=== PATIENT | female | born 1995 | race Caucasian/White ===

== ENCOUNTER 2019-04-09 17:58 | Emergency (ER) | payer BC, SELFPAY ==
[2019-04-09 18:10] VITALS: BP 121/77; PULSE 85; RESP 16; TEMP 36.4; O2SAT 99
--- NOTE | 2019-04-09 18:29 | W.ED.GENAD ---
Discharge Plan Disposition Patient Disposition: HOME Condition: Stable Discharge Details Chief Complaint: Nk/Back Pain Clinical Impression: Pelvic pain Primary Care Provider: Nelia,Local ED Provider: Obdulia Ragland Home Meds and New Rx's Prescriptions: No Action sertraline 50 mg Tablet 50 mg PO DAILY RF: 0 ibuprofen 200 mg Tablet 600 mg PO PRN PRNRF: 0 Discharge Instructions Instructions: Pelvic Pain (ED) Additional Instructions: Follow up with PCP in 3-5 days. Return to ED if increase in pain, fever, N/V/D, or any concerns. Referrals: Mian Almanza [ NON-[facility] STAFF PHYSICIAN] - Medical Decision Making 24 year old female presents with bilateral lower back pain and suprapubic pelvic cramping. Reports diarrhea and nausea 24 hours ago, none now. Last urinated early this am. LNMP 3 months ago, is on control. Labs obtained including CBC, BMP, Urnalysis and Urine test which were all negative. Potassium was slightly low at 3.2. No evidence for UTI or Kidney stone. Patient re-evaluation she states she is feeling better. Informed on lab results, verbalized understanding. Plan is to discharge home. Differential Diagnosis Differential Diagnosis: Ovarian cyst, UTI, Kidney stone, Gastroenteritis, Medical Records Medical records reviewed: Yes I reviewed the patient's medical records. Lab Data Lab results reviewed: Yes I reviewed the patient's lab results. HPI General Date/Time Provider Initiated Documentation: 04/09/19 18:19. Limitations to Documentation: no limitations. Information obtained by: patient and RN notes reviewed. History of Present Illness described as moderate, with intensity rated at 5. Quality is described as stabbing and sharp, and is localized to the back and abdomen. Patient reports no radiation. Patient started experiencing this day(s) (1) and it has been intermittent. Medication improves symptom(s), (Ibuprofen) Movement worsens symptoms (Worse with standing) . Patient notes loss of appetite and nausea/vomiting. Patient did receive the following treatments prior to arrival, NSAID HPI Narrative: Patient presents with bilateral lower back pain and lower suprapubic abdominal pain. Reports began yesterday and associated with nausea and diarrhea. Describes back pain as sharp and stabbing. Abdominal pain described as cramping. Reports has not urinated since early this am. Related Data Home Medications Medication Instructions Recorded Confirmed ibuprofen 600 mg PO PRN PRN 04/09/19 04/09/19 sertraline 50 mg PO DAILY 04/09/19 04/09/19 Allergies Allergy/AdvReac Type Severity Reaction Status Date / Time No Known Allergies Allergy Unverified 04/09/19 18:13 General Stated Complaint: Nk/Back Pain [place]: 3 Review of Systems All systems reviewed & are unremarkable except as noted in HPI and below Constitutional Constitutional: Reports as per HPI, Denies body ache(s), Denies fever(s) and Reports poor appetite ENT Ears, Nose, Mouth, and Throat: Denies dysphagia Cardiovascular Cardiovascular: Denies chest pain, Denies edema, Denies leg edema and Denies dyspnea Respiratory Respiratory: Reports as per HPI, Denies cough and Denies dyspnea Gastrointestinal Gastrointestinal: Reports as per HPI, Reports abdominal pain, Reports cramping, Denies dysphagia, Reports diarrhea, Reports loose stools and Denies vomiting Genitourinary Genitourinary: Denies abnormal vaginal bleeding, Reports difficulty voiding, Denies dysuria, Reports pelvic pain, Reports flank pain and Denies vaginal discharge Musculoskeletal Musculoskeletal: Reports system reviewed and no additional complaints, except as docu Integumentary/Breasts Skin/Breast: Reports system reviewed and no additional complaints, except as docu Allergic/Immunologic Allergic/Immunologic: Reports system reviewed and no additional complaints, except as docu PFSH Social History Smoking/Tobacco Use Status: Never Substance use type: marijuana Do you feel safe at home: Yes Do you feel safe in your relationship?: Yes Female Reproductive History Menstrual control method: pills Exam Const General: cooperative, healthy appearing, comfortable and no acute distress Nutritional Appearance: average body habitus Orientation: alert, awake and oriented x3 HENMT Head: normal to inspection Chest Chest: normal inspection of the chest Resp Effort & Inspection: normal respiratory effort Auscultation: clear to auscultation bilaterally Cardio Rate: regular rate Rhythm: regular rhythm Heart Sounds: S1 normal and S2 normal GI Inspection: normal to inspection Palpation: soft, no guarding, no masses and nontender Auscultation: normal bowel sounds Back/Spine/Pelvis Back: no CVA tenderness Cervical Spine: normal cervical lordosis Thoracic/Lumbar Spine: thoracic and lumbar spine normal to inspection Pelvis: no pain with anterior-posterior compression Course Vital Signs Vital signs: Vital Signs Temperature 36.4 C L 04/09/19 18:10 Pulse 85 04/09/19 18:10 Respiratory Rate 16 04/09/19 18:10 Blood Pressure 121/77 04/09/19 18:10 Pulse Oximetry 99 04/09/19 18:10 Temperature 36.4 C L 04/09/19 18:10 Temperature Source Skin 04/09/19 18:10 Pulse 85 04/09/19 18:10 Respiratory Rate 16 04/09/19 18:10 Respiratory Effort 04/09/19 18:14 Blood Pressure 121/77 04/09/19 18:10 Blood Pressure Position Sitting 04/09/19 18:10 Pulse Oximetry 99 04/09/19 18:10 Oxygen Delivery Method Room Air 04/09/19 18:10 Oxygen Flow Rate 0 04/09/19 18:10 Pain Level 7 04/09/19 18:10
[2019-04-09] MEDS: Normal Saline 1,000 ML 1000 ML IV (19:12)
[2019-04-09 19:17] LABS: Abs Immature Grans 0.01 k/cumm (0.0-0.09); Absolute Basophil Count 0.03 k/cumm (0.0-0.2); Absolute Eosinophil Count 0.27 k/cumm (0.0-0.7); Absolute Lymphocyte Count 1.21 k/cumm (1.2-3.4); Absolute Monocyte Count 0.73 k/cumm (0.11-0.7); Absolute Neutrophil Count 5.77 k/cumm (1.2-6.7); Basophils % 0.4; Bilirubin Negative (Negative); Blood Negative (Negative); Clarity Clear (Clear); Eosinophils % 3.4; Glucose Negative (Negative); HCT 44.2 % (36.0-46.0); HGB 14.8 g/dL (12.0-15.5); Immature Grans % 0.1 %; Ketones Negative (Negative); Leukocyte Esterase Negative (Negative); Lymphocytes % 15.1; Mean Corp. HGB Concentration 33.5 g/dL (32.0-36.0); Mean Corpuscular Hemoglobin 30.5 pg (27.0-33.0); Mean Corpuscular Volume 90.9 fL (80-95); Mean Platelet Volume 11.7 fL (8.0-11.0); Monocytes % 9.1; Neutrophils % 71.9; Nitrite Negative (Negative); Platelet Count 187 x1000/uL (130-400); RBC 4.86 m/cumm (4.00-5.20); RBC Distribution Width 13.5 % (11.7-14.6); Urobilinogen 0.2 EU/dL (Up TO 0.2); White Blood Cell Count 8.02 k/cumm (4.4-10.8); pH 6.5 (5-8)
[2019-04-09 19:27] LABS: Anion Gap 9.3 mmol/L (3-11); BUN 13 mg/dL (7-18); CO2 27.7 mmol/L (21.0-32.0); CREATININE 0.71 mg/dL (0.55-1.02); Chloride 101 mmol/L (98-107); Glucose 95 mg/dL (74-106); Potassium 3.2 mmol/L (3.5-5.1); Sodium 138 mmol/L (136-145)
[2019-04-09 20:05] VITALS: BP 122/64; PULSE 84; RESP 19; TEMP 37.2; O2SAT 99
== END 2019-04-09 20:05 | disposition home or self-care (01) ==
PROVIDERS: Emergency Provider Registered Nurse Emergency
DX: R10.2 Pelvic and perineal pain (principal); M54.5 Low back pain
CPT/HCPCS: 36415; 80048; 81025; 96360; 99284; 81003; 85025; 99283